=== PATIENT | female | born 1955 | race Two or more races ===

== ENCOUNTER 2020-02-24 23:41 | Inpatient (IN) | payer MEDICARE ==
[~2020-02-24] VITALS: Ht 165.1 cm; Wt 81.6 kg
--- NOTE | 2020-02-24 23:30 | NUR ---
PT IS A DIRECT ADMIT FROM [facility] IN [facility], C/O OF ABDOMINAL PAIN X4 WEEKS AND SOBX4 DAYS. DENIES N/V/ DIARRHEA. PT TESTED POSITIVE FOR COVID. PT DENIES ANY SOB/CP, BUT C/O ABDOMINAL PAIN. PT IS ON 15L NRM SATURATING AT 97%, V/S STABLE. SKIN IS INTACT. PERSONAL BELONGINGS CHECKED AND WITH THE PATIENT. SAFETY MEASURES IN PLACE. CALL LIGHT WITHIN REACH. WILL CONTINUE WITH THE PLAN OF CARE.
[2020-02-25] VITALS (9 sets, daily range): BP systolic 105–137; BP diastolic 48–81
[2020-02-25] MEDS ORDERED: CEFT2VIA13 IJ (01:38)
[2020-02-25] MEDS ORDERED: DOXY (01:42)
[2020-02-25] MEDS ORDERED: MAGNESIUM HYDROXIDE 30 ML LIQUID UDC PO PRN (02:00)
[2020-02-25] MEDS ORDERED: Z GUARD REMEDY PASTE 57 GM TUBE TOP PRN (02:00)
[2020-02-25] MEDS ORDERED: HYDROCODONE/APAP 5-325MG TABLET PO PRN (02:00)
[2020-02-25] MEDS ORDERED: ONDANSETRON 4 MG/2 ML VIAL IV PRN (02:00)
[2020-02-25] MEDS ORDERED: ENOXAPARIN SODIUM 40 MG/0.4 ML DISP.SYRIN SQ SCH (02:00)
[2020-02-25] MEDS ORDERED: DEXTROSE 50% 50 ML DISP.SYRIN IV PRN (02:00)
[2020-02-25] MEDS: ACETAMINOPHEN 325 MG TABLET PO PRN ×2 (02:47→17:03)
[2020-02-25] MEDS: BLOOD SUGAR DIAGNOSTIC 1 EACH STRIP VI SCH ×4 (07:51→21:15)
[2020-02-25] MEDS: DEXAMETHASONE SOD PHOSPHATE 4 MG INJ IV SCH (08:44)
[2020-02-25] MEDS: CEFTRIAXONE 1 G in IV DEXTROSE 5% 50 ML IV SCH (08:44)
[2020-02-25] MEDS: ENOXAPARIN SODIUM 40 MG/0.4 ML DISP.SYRIN SQ SCH (08:45)
[2020-02-25] MEDS: INSULIN REGULAR, HUMAN 300 UNIT/3 ML VIAL SQ PRN ×3 (08:55→17:47)
[2020-02-25] MEDS ORDERED: CEFTRIAXONE 1 G VIAL IM SCH (09:00)
[2020-02-25 11:05] LABS: CREATININE 0.8 mg/dL (0.6-1.3); POTASSIUM 4.4 mmol/L (3.5-5.1)
[2020-02-25 11:17] LABS: BASOPHILS % (AUTO) 0.4 % (0.0-2.0); EOSINOPHILS % (AUTO) 0.2 % (0.0-7.0); HEMATOCRIT 46.1 % (31.2-41.9); HEMOGLOBIN 15.9 g/dL (10.9-14.3); LYMPHOCYTES # (AUTO) 0.6 K/uL (20.0-40.0); LYMPHOCYTES % (AUTO) 15.6 % (20.5-51.5); MEAN CORPUSCULAR HEMOGLOBIN 31.9 uug (24.7-32.8); MEAN CORPUSCULAR HGB CONC 35 g/dL (32.3-35.6); MEAN CORPUSCULAR VOLUME 92.6 fL (75.5-95.3); MONOCYTES # (AUTO) 0.3 K/uL (2.0-10.0); MONOCYTES % (AUTO) 9.2 % (0.0-11.0); NEUTROPHILS # (AUTO) 2.7 K/uL (1.8-8.9); NEUTROPHILS % (AUTO) 74.6 % (38.5-71.5); PLATELET COUNT (AUTO) 76 K/uL (179-408); RED BLOOD CELL COUNT(AUTO) 4.98 MIL/uL (3.63-4.92); WHITE BLOOD COUNT (AUTO) 3.6 K/uL (3.8-11.8)
[2020-02-25 11:21] LABS: THYROID STIMULATING HORMONE 1.483 mIU/mL (0.358-3.740)
[2020-02-25 11:24] LABS: MAGNESIUM 1.9 mg/dL (1.8-2.4); PHOSPHOROUS 2.5 mg/dL (2.5-4.9)
[2020-02-25] MEDS ORDERED: REMDESIVIR (CHARGED) 200 MG in IV NORMAL SALINE 210 ML IV ONE ×2 (15:00→17:00)
--- NOTE | 2020-02-25 15:00 | NUR ---
Received pt in no acute distress. pt on non-rebreather mask on 15 l. Iv intact. Safety and comfort provided. Will continue to monitor.
--- NOTE | 2020-02-25 15:30 | NUR ---
PT STABLE THROUGHOUT THE SHIFT. ON 15L NRM TOLERATING WELL. SAFETY MEASURES IN PLACE. CALL LIGHT WITHIN REACH. WILL ENDORSE TO ONCOMING NURSE ACCORDINGLY.
--- NOTE | 2020-02-25 16:05 | NUR ---
CALLED DR. SWARTZ FOR UPDATE REGARDING PT OXYGEN SATURATION IS AT 88% AT 15L NONREBREATHER MASK. ORDERED TO MONITOR PT AND UPDATE HIM AFTER AN HOUR.
--- NOTE | 2020-02-25 17:05 | NUR ---
DR. SWARTZ NOTIFIED PT OXYGEN IS 90%. PT GIVEN TYLENOL PRN PER PT REQUEST. PT TOLERATING IT WELL. SAFETY PROVIDED. WILL CONTINUE TO MONITOR.
--- NOTE | 2020-02-25 19:00 | NUR ---
Hands off report given. Pt in no acute distress.iv intact and ongoing remdesivir running.Pt tolERATING IT WELL. PT ON 15L NONREBREATHER MASK. SAFETY AND COMFORT PROVIDED. ENDORSE TO INCOMING NURSE.
--- NOTE | 2020-02-25 19:20 | NUR ---
patient received lying in bed comfortably but anxious. remdesivir completed. v/s stable. on nonrebreather 15L. no s/s of acute distress noted. safety precautions provided. will continue to monitor and assess.
--- NOTE | 2020-02-25 20:30 | NUR ---
patient desat at 89%. communicated to RT for evaluation. patient placed on NC 6L and non rebreather mask 15L. sat at 90% currently. will continue to monitor and assess.
[2020-02-25] MEDS: ASCORBIC ACID 500 MG TABLET PO SCH (20:35)
[2020-02-25] MEDS: INSULIN REGULAR, HUMAN 300 UNITS/3 ML VIAL SQ PRN (22:21)
--- NOTE | 2020-02-25 23:18 | NUR ---
patient resting comfortably. saturation currently at 90%.
[2020-02-26 00:50] VITALS: BP 128/61
[2020-02-26 05:55] VITALS: BP 149/68
--- NOTE | 2020-02-26 06:45 | NUR ---
patient saturation at 88%-90%. RT called for evaluation. endorsed to me by morning nurse that dr. manzanares is aware of patients saturation.
[2020-02-26] MEDS: BLOOD SUGAR DIAGNOSTIC 1 EACH STRIP VI SCH ×5 (06:51→20:34)
--- NOTE | 2020-02-26 06:54 | NUR ---
patient resting comfortably. aaox3. able to verbalize needs. asked me to bring her table closer to her for the phone. safety precautions provided. all needs met and medications administered. will continue to monitor and assess.
[2020-02-26 07:16] LABS: BASOPHILS % (AUTO) 0.1 % (0.0-2.0); HEMATOCRIT 45.9 % (31.2-41.9); HEMOGLOBIN 15.9 g/dL (10.9-14.3); LYMPHOCYTES # (AUTO) 0.7 K/uL (20.0-40.0); LYMPHOCYTES % (AUTO) 12.7 % (20.5-51.5); MEAN CORPUSCULAR HEMOGLOBIN 32.3 uug (24.7-32.8); MEAN CORPUSCULAR HGB CONC 35 g/dL (32.3-35.6); MEAN CORPUSCULAR VOLUME 93.3 fL (75.5-95.3); MONOCYTES # (AUTO) 0.8 K/uL (2.0-10.0); MONOCYTES % (AUTO) 13.5 % (0.0-11.0); NEUTROPHILS # (AUTO) 4.1 K/uL (1.8-8.9); NEUTROPHILS % (AUTO) 73.7 % (38.5-71.5); PLATELET COUNT (AUTO) 100 K/uL (179-408); RED BLOOD CELL COUNT(AUTO) 4.92 MIL/uL (3.63-4.92); WHITE BLOOD COUNT (AUTO) 5.6 K/uL (3.8-11.8)
--- NOTE | 2020-02-26 07:30 | NUR ---
Received patient in bed alert and oriented times 4. Patient is Guamanian speaking. Patient is on 6L nasal cannula and 15L non- rebreather. Patient is having labored breathing. Repositioned patient and O2 went up slightly. Safety precautions in place with call light and belongings in reach. Will continue to monitor.
[2020-02-26 07:31] LABS: CREATININE 0.9 mg/dL (0.6-1.3); MAGNESIUM 2.2 mg/dL (1.8-2.4); PHOSPHOROUS 3.4 mg/dL (2.5-4.9); POTASSIUM 3.9 mmol/L (3.5-5.1)
[2020-02-26] MEDS ORDERED: CHOLECALCIFEROL 1,000 UNIT TABLET PO SCH (09:00)
--- NOTE | 2020-02-26 09:00 | NUR ---
Patient is still having difficulty breathing. Saturating in the 80s Made MD aware. Placed orders for ABGs. Will continue to monitor.
[2020-02-26] MEDS: ASCORBIC ACID 500 MG TABLET PO SCH (09:10)
[2020-02-26] MEDS: CEFTRIAXONE 1 G in IV DEXTROSE 5% 50 ML IV SCH (09:10)
[2020-02-26] MEDS: DEXAMETHASONE SOD PHOSPHATE 4 MG INJ IV SCH (09:11)
[2020-02-26] MEDS: ENOXAPARIN SODIUM 40 MG/0.4 ML DISP.SYRIN SQ SCH (09:12)
[2020-02-26] MEDS: INSULIN REGULAR, HUMAN 300 UNIT/3 ML VIAL SQ PRN ×4 (09:25→20:51)
--- NOTE | 2020-02-26 10:50 | NUR ---
Patient ABG results reported to MD, ordered for transfer to ICU and BIPAP placement. Will continue to monitor.
[2020-02-26 11:00] LABS: ABG BASE EXCESS 1.1 mmol/L; ABG PCO2 33.6 mmHg (35.0-45.0); ABG PH 7.471 (7.350-7.450); ABG PO2 37.8 mmHg (75.0-100.0); ABG SITE RIGHT RADIAL; ABG TOTAL HEMOGLOBIN 16.7 G/dL (12.0-16.0); COHb 1.1 % (0.5-1.5); MetHb 0.3 % (0.0-1.5); O2Hb 74.9 % (94.0-97.0)
--- NOTE | 2020-02-26 11:30 | NUR ---
Patient is not being transported to ICU, no bed available. BIPAP placed by RT Rosario. Patient reports that she does not want Intubation but wants CPR. Made MD aware. Will continue to monitor
[2020-02-26 11:56] VITALS: BP 125/79
[2020-02-26 13:09] LABS: BILIRUBIN,DIRECT 0.4 mg/dL (0.0-0.2); BILIRUBIN,TOTAL 0.9 mg/dL (0.2-1.0); TOTAL PROTEIN, SERUM 7.2 g/dL (6.4-8.2)
[2020-02-26] MEDS ORDERED: REMDESIVIR (CHARGED) 100 MG in IV NORMAL SALINE 230 ML IV SCH (15:00)
[2020-02-26 16:25] VITALS: BP 119/60
[2020-02-26] MEDS: IV D5/ 0.9% NACL 1,000 ML IV PRN (16:31)
[2020-02-26] MEDS: REMDESIVIR (CHARGED) 100 MG in IV NORMAL SALINE 230 ML IV SCH (17:54)
--- NOTE | 2020-02-26 18:00 | NUR ---
Patient IV infiltrated. Started new IV on the right hand. Will infuse Remdezivir. Will continue to monitor.
--- NOTE | 2020-02-26 19:00 | NUR ---
OBTAINED ORDER FROM AVINASH MCKEON LICENSING WORKER REGARDING CPAP ORDER, AND ITS SETTINGS. CONT TO MONITOR.
--- NOTE | 2020-02-26 19:00 | NUR ---
RECEIVED PATIENT ALERT AWAKE, SPEAK TUNISIAN BUT UNDERSTAND FRENCH. PATIENT ON CPAP DUE SOB, RESPIRATORY RATE OF 40. PATIENT V/S STABLE AT THIS TIME. OXYGEN SAT 92. PATIENT HAS SOME ANXIETY, REORIENT PATIENT AND KEPT PATIENT COMFORTABLE, CONT TO MONITOR.
--- NOTE | 2020-02-26 19:17 | NUR ---
Patient resting in bed. She is on BIPAP saturating on 94%. Patient is NPO. Gave all medications as ordered. Safety precautions in place with call light and belongings within reach. Will endorse to oncoming nurse
[2020-02-26 20:00] VITALS: BP 139/68
[2020-02-26] MEDS ORDERED: INSULIN GLARGINE,HUM 300 UNITS/3 ML CARTRIDGE SQ SCH (21:00)
[2020-02-26 23:59] VITALS: BP 123/79
[2020-02-27] VITALS (8 sets, daily range): BP systolic 113–160; BP diastolic 43–72
[2020-02-27] MEDS: BLOOD SUGAR DIAGNOSTIC 1 EACH STRIP VI SCH ×4 (05:27→21:25)
[2020-02-27] MEDS: INSULIN REGULAR, HUMAN 300 UNIT/3 ML VIAL SQ PRN ×3 (06:18→17:47)
--- NOTE | 2020-02-27 06:34 | NUR ---
PATIENT ALERT ORIENTED, TELE MONITOR SINUS RHYTHM AT THIS TIME. PATIENT ON BIPAP 94% RATE 16, SAT 92 TO 96%, BUT RESPIRATION ON BETWEEN 33 TO 45, INSTRUCTED PATIENT TO BREATH SLOWLY, CONT TO MONITOR.
[2020-02-27 07:05] LABS: HEMATOCRIT 43.5 % (31.2-41.9); HEMOGLOBIN 15.2 g/dL (10.9-14.3); LYMPHOCYTES # (AUTO) 0.7 K/uL (20.0-40.0); LYMPHOCYTES % (AUTO) 11.4 % (20.5-51.5); MEAN CORPUSCULAR HEMOGLOBIN 32.2 uug (24.7-32.8); MEAN CORPUSCULAR HGB CONC 35 g/dL (32.3-35.6); MEAN CORPUSCULAR VOLUME 92.4 fL (75.5-95.3); MONOCYTES # (AUTO) 0.9 K/uL (2.0-10.0); MONOCYTES % (AUTO) 14.3 % (0.0-11.0); NEUTROPHILS # (AUTO) 4.8 K/uL (1.8-8.9); NEUTROPHILS % (AUTO) 74.3 % (38.5-71.5); PLATELET COUNT (AUTO) 115 K/uL (179-408); RED BLOOD CELL COUNT(AUTO) 4.71 MIL/uL (3.63-4.92); WHITE BLOOD COUNT (AUTO) 6.5 K/uL (3.8-11.8)
--- NOTE | 2020-02-27 08:00 | NUR ---
Pt received to care, report recieved, Pt is awake, BiPap intact, breathing is non-labored with the mask. Pt is NPO, IV running, site is intact, Pt saturates 95-97%. Skin is intact.
[2020-02-27] MEDS: DEXAMETHASONE SOD PHOSPHATE 4 MG INJ IV SCH (09:00)
[2020-02-27] MEDS: CEFTRIAXONE 1 G in IV DEXTROSE 5% 50 ML IV SCH (09:00)
[2020-02-27] MEDS: ENOXAPARIN SODIUM 40 MG/0.4 ML DISP.SYRIN SQ SCH (09:13)
[2020-02-27 10:09] LABS: BILIRUBIN,DIRECT 0.3 mg/dL (0.0-0.2); BILIRUBIN,TOTAL 0.8 mg/dL (0.2-1.0); CREATININE 0.8 mg/dL (0.6-1.3); MAGNESIUM 2.5 mg/dL (1.8-2.4); PHOSPHOROUS 2.7 mg/dL (2.5-4.9); POTASSIUM 4.5 mmol/L (3.5-5.1); TOTAL PROTEIN, SERUM 6.9 g/dL (6.4-8.2)
[2020-02-27] MEDS ORDERED: diphenhydrAMINE 50 MG/1 ML VIAL IV ONE (14:30)
--- NOTE | 2020-02-27 14:30 | NUR ---
RT PT WAS PLACE BACK ON BIPAP DUE TO ABG RESULTS RESULTS GIVEN AND READ BACK TO MD PT PENDING CCU TRANSFER. SPO2 93% BIAPP ALARMS ON AND AUDIBLE .
[2020-02-27] MEDS: IV D5/ 0.9% NACL 1,000 ML IV PRN (14:43)
[2020-02-27] MEDS ORDERED: TOCILIZUMAB 400 MG in IV NORMAL SALINE 80 ML IV ONE ×2 (15:00→17:00)
[2020-02-27 16:57] LABS: ABG BASE EXCESS -1.5 mmol/L; ABG HCO3 20.2 mmol/L; ABG PCO2 27.3 mmHg (35.0-45.0); ABG PH 7.487 (7.350-7.450); ABG PO2 43.2 mmHg (75.0-100.0); ABG SITE LEFT RADIAL; COHb 1.6 % (0.5-1.5); MetHb 0.2 % (0.0-1.5); O2Hb 83.8 % (94.0-97.0); VENT MODE HFNC 55LPM 100% NRB 15LPM
[2020-02-27] MEDS: REMDESIVIR (CHARGED) 100 MG in IV NORMAL SALINE 230 ML IV SCH (17:55)
--- NOTE | 2020-02-27 18:45 | NUR ---
Patient transported to CCU, with BiPap mask, accompanied by RT, nurse and YOUTH CARE SPECIALIST. Report given to LUKAS Navas
--- NOTE | 2020-02-27 19:00 | NUR ---
Patient arrived on unit from 3rd floor telemetry as I was coming onto my shift. Patient is COVID + and being upgraded to ICU for worsening ABG results. Patient is currently on BiPAP 14/ rate 16 FiO2 100% current saturation 96%. Was informed she has been in controlled Afib, however she is currently in sinus rhythm on the monitor. Peripheral iv in the right AC running D5W @75ml/hr. Patient is A/O x2 anxious and Cape Verdean speaking. Patient arrived with all belongings.
[2020-02-27] MEDS: INSULIN GLARGINE,HUM 300 UNITS/3 ML CARTRIDGE SQ SCH (21:26)
[2020-02-27] MEDS: INSULIN REGULAR, HUMAN 300 UNITS/3 ML VIAL SQ PRN (21:28)
[2020-02-28] VITALS (24 sets, daily range): BP systolic 96–160; BP diastolic 22–101
[2020-02-28 05:30] LABS: BASOPHILS % (AUTO) 0.1 % (0.0-2.0); HEMATOCRIT 42.6 % (31.2-41.9); HEMOGLOBIN 14.3 g/dL (10.9-14.3); LYMPHOCYTES # (AUTO) 0.6 K/uL (20.0-40.0); LYMPHOCYTES % (AUTO) 9.3 % (20.5-51.5); MEAN CORPUSCULAR HEMOGLOBIN 31.6 uug (24.7-32.8); MEAN CORPUSCULAR HGB CONC 34 g/dL (32.3-35.6); MEAN CORPUSCULAR VOLUME 93.9 fL (75.5-95.3); MONOCYTES # (AUTO) 0.9 K/uL (2.0-10.0); MONOCYTES % (AUTO) 13.3 % (0.0-11.0); NEUTROPHILS % (AUTO) 77.3 % (38.5-71.5); PLATELET COUNT (AUTO) 117 K/uL (179-408); RED BLOOD CELL COUNT(AUTO) 4.54 MIL/uL (3.63-4.92); WHITE BLOOD COUNT (AUTO) 6.5 K/uL (3.8-11.8)
[2020-02-28 05:37] LABS: BILIRUBIN,DIRECT 0.4 mg/dL (0.0-0.2); BILIRUBIN,TOTAL 0.8 mg/dL (0.2-1.0); CREATININE 0.8 mg/dL (0.6-1.3); MAGNESIUM 2.2 mg/dL (1.8-2.4); PHOSPHOROUS 2.5 mg/dL (2.5-4.9); TOTAL PROTEIN, SERUM 6.4 g/dL (6.4-8.2)
--- NOTE | 2020-02-28 06:44 | NUR ---
Patient remains in stable condition without any episodes of desaturation during the night, maintaining a SpO2 between 93-96. Patient tolerated BiPAP well. No signs of distress, no change in level of consciousness.
[2020-02-28] MEDS: BLOOD SUGAR DIAGNOSTIC 1 EACH STRIP VI SCH ×4 (07:30→20:54)
[2020-02-28] MEDS: DEXAMETHASONE SOD PHOSPHATE 4 MG INJ IV SCH (07:51)
[2020-02-28] MEDS: ENOXAPARIN SODIUM 40 MG/0.4 ML DISP.SYRIN SQ SCH (07:52)
[2020-02-28] MEDS: INSULIN REGULAR, HUMAN 300 UNIT/3 ML VIAL SQ PRN ×2 (09:04→16:21)
--- NOTE | 2020-02-28 09:22 | NUR ---
CASSIE Canas ((Infectious) here to see pt. Full report given. New orders received.
[2020-02-28] MEDS: IV D5/ 0.9% NACL 1,000 ML IV PRN (09:24)
--- NOTE | 2020-02-28 09:26 | NUR ---
Dr. Machado here to see pt. Full report given. New orders received.
[2020-02-28 10:01] LABS: ABG BASE EXCESS -1.7 mmol/L; ABG HCO3 21.7 mmol/L; ABG PCO2 33.5 mmHg (35.0-45.0); ABG PO2 75.3 mmHg (75.0-100.0); ABG SITE LEFT RADIAL; ABG TOTAL HEMOGLOBIN 15.3 G/dL (12.0-16.0); COHb 1.4 % (0.5-1.5); MetHb 0.3 % (0.0-1.5); O2Hb 93.7 % (94.0-97.0); VENT MODE BIPAP 14/7
[2020-02-28] MEDS: CEFTRIAXONE 1 G in IV DEXTROSE 5% 50 ML IV SCH (10:37)
--- NOTE | 2020-02-28 15:25 | NUR ---
Convalescent plasma form signed by Infectious MD and faxed to CCU unit. Paper received and given to blood bank.
--- NOTE | 2020-02-28 15:55 | NUR ---
1 convalescent plasma started per protocol. Infusing at 60 ml/hr first 15 min. Will assess for any adverse transfusion reactions.
--- NOTE | 2020-02-28 16:02 | NUR ---
Unable to register blood product number on convalescent plasma. Unable to scan barcode after multiple attempts. Notified lab and okay to chart manually on paper form (see pt's chart). Witness and verified with Office Machine Installer RN.
--- NOTE | 2020-02-28 16:10 | NUR ---
Pt tolerating convalescent plasma transfusion. No adverse reactions noted or reported from the pt. VSS wnl. Will continue to monitor.
--- NOTE | 2020-02-28 17:10 | NUR ---
Convalescent plasma completed. Pt tolerated transfusion well and no adverse reactions noted or reported from the pt. VSS wnl. See Blood Transfusion Record in chart for documentation notes.
[2020-02-28] MEDS: REMDESIVIR (CHARGED) 100 MG in IV NORMAL SALINE 230 ML IV SCH (17:16)
--- NOTE | 2020-02-28 19:30 | NUR ---
Report received. Patient admitted for PNA and COVID-19. AAO, follows commands fairly well. Mildly to moderately SOB on exertion. On BIPAP, JFQ9=471%, 14/7 and rate=16. Advised and reassured appropriately. Assessment done.
[2020-02-28] MEDS: INSULIN GLARGINE,HUM 300 UNITS/3 ML CARTRIDGE SQ SCH (20:57)
[2020-02-28] MEDS: INSULIN REGULAR, HUMAN 300 UNITS/3 ML VIAL SQ PRN (20:59)
--- NOTE | 2020-02-28 21:20 | NUR ---
Spoke to patient's daughter Natasha #[phone]; updated of patient's condition.
[2020-02-29] VITALS (24 sets, daily range): BP systolic 111–143; BP diastolic 49–79
--- NOTE | 2020-02-29 | NUR ---
Uses call light. Asking for water to rinse mouth. Desaturates when off BIPAP. Monitored closely.
[2020-02-29] MEDS: IV D5/ 0.9% NACL 1,000 ML IV PRN ×2 (04:29→20:54)
[2020-02-29 05:26] LABS: BASOPHILS % (AUTO) 0.1 % (0.0-2.0); EOSINOPHILS % (AUTO) 0.2 % (0.0-7.0); HEMATOCRIT 43.8 % (31.2-41.9); HEMOGLOBIN 14.9 g/dL (10.9-14.3); LYMPHOCYTES # (AUTO) 0.5 K/uL (20.0-40.0); LYMPHOCYTES % (AUTO) 7.7 % (20.5-51.5); MEAN CORPUSCULAR HEMOGLOBIN 31.7 uug (24.7-32.8); MEAN CORPUSCULAR HGB CONC 34 g/dL (32.3-35.6); MEAN CORPUSCULAR VOLUME 93.6 fL (75.5-95.3); MONOCYTES # (AUTO) 0.5 K/uL (2.0-10.0); MONOCYTES % (AUTO) 6.9 % (0.0-11.0); NEUTROPHILS # (AUTO) 6.1 K/uL (1.8-8.9); NEUTROPHILS % (AUTO) 85.1 % (38.5-71.5); PLATELET COUNT (AUTO) 105 K/uL (179-408); RED BLOOD CELL COUNT(AUTO) 4.68 MIL/uL (3.63-4.92); WHITE BLOOD COUNT (AUTO) 7.1 K/uL (3.8-11.8)
[2020-02-29 05:46] LABS: BILIRUBIN,DIRECT 0.3 mg/dL (0.0-0.2); BILIRUBIN,TOTAL 0.8 mg/dL (0.2-1.0); CREATININE 0.7 mg/dL (0.6-1.3); MAGNESIUM 2.1 mg/dL (1.8-2.4); PHOSPHOROUS 2.5 mg/dL (2.5-4.9); POTASSIUM 3.6 mmol/L (3.5-5.1); TOTAL PROTEIN, SERUM 6.2 g/dL (6.4-8.2)
--- NOTE | 2020-02-29 06:24 | NUR ---
Condition unchanged; still mildly to moderately SOB with activity or exertion. BP stable.
[2020-02-29] MEDS: BLOOD SUGAR DIAGNOSTIC 1 EACH STRIP VI SCH ×4 (06:55→20:27)
--- NOTE | 2020-02-29 08:00 | NUR ---
PT RECEIVED ON CONTINUOUS BIPAP ON S/T SETTINGS OF IPAP 14, EPAP 7, RATE 16, 100% FIO2. PT IS TACHYPNEIC, APPEARS TO HAVE SOME MODERATE DISTRESS. RN IS AWARE. BIPAP PLUGGED INTO RED OUTLET. WILL CONTINUE TO MONITOR.
[2020-02-29] MEDS: DEXAMETHASONE SOD PHOSPHATE 4 MG INJ IV SCH (08:06)
[2020-02-29] MEDS: ENOXAPARIN SODIUM 40 MG/0.4 ML DISP.SYRIN SQ SCH (08:06)
[2020-02-29] MEDS: CEFTRIAXONE 1 G in IV DEXTROSE 5% 50 ML IV SCH (08:09)
--- NOTE | 2020-02-29 08:34 | NUR ---
Patient tachypneic with breathing in the mid-30 to mid 40's with c/of feeling short of breath. Saturation on 95-98 on bipap 100%.
--- NOTE | 2020-02-29 08:35 | NUR ---
Pulmonary services, Dr. Machado called to be notified orders to intubate pt. received. ER. physician notified.
[2020-02-29] MEDS ORDERED: PROPOFOL 100 ML IV PRN (08:45)
--- NOTE | 2020-02-29 10:30 | NUR ---
Pulmonary services, Dr. Machado in the unit to see and examine pt. report given. After assessing pt. as stated by Md. Patient should be intubated at any time when needed bipap changes ordered at this time.
--- NOTE | 2020-02-29 11:11 | NUR ---
RT Devendra in the unit and BIPAP changed to Rate 20 / and 100%.
[2020-02-29] MEDS: INSULIN REGULAR, HUMAN 300 UNIT/3 ML VIAL SQ PRN ×2 (12:21→17:16)
[2020-02-29] MEDS ORDERED: LORAZEPAM 2 MG/1 ML VIAL IV ONE (14:30)
[2020-02-29] MEDS: REMDESIVIR (CHARGED) 100 MG in IV NORMAL SALINE 230 ML IV SCH (17:05)
--- NOTE | 2020-02-29 19:30 | NUR ---
Report received. Patient admitted for PNA and COVID-19, on isolation. Sleeping, easily arouses to name. On continuous BIPAP settings as follows: rate=20, 18/7 and IJN7=770%. Tachypneic RR in the 30's. Saturation above 90%. Will monitor closely. Assessment completed. Addendum: 03/01/20 at 0325 by MANUELA IRENE RN Amended: Links added. Addendum: 03/01/20 at 0327 by MANUELA IRENE RN Amended: Links added.
--- NOTE | 2020-02-29 20:00 | NUR ---
RT at bedside. Bath given; skin care provided with RT's help. Mildly SOB during care. On high goodwin's position at all times. Addendum: 03/01/20 at 0327 by MANUELA IRENE RN Amended: Links added.
[2020-02-29] MEDS: INSULIN GLARGINE,HUM 300 UNITS/3 ML CARTRIDGE SQ SCH (20:29)
[2020-02-29] MEDS: INSULIN REGULAR, HUMAN 300 UNITS/3 ML VIAL SQ PRN (20:30)
[2020-03-01] VITALS (24 sets, daily range): BP systolic 94–137; BP diastolic 20–79
--- NOTE | 2020-03-01 | NUR ---
Sleeping, O2 saturation 94-96%.
[2020-03-01 05:22] LABS: BASOPHILS % (AUTO) 0.1 % (0.0-2.0); EOSINOPHILS # (AUTO) 0.2 K/uL (0.0-0.7); EOSINOPHILS % (AUTO) 2.2 % (0.0-7.0); HEMATOCRIT 44.4 % (31.2-41.9); HEMOGLOBIN 15.2 g/dL (10.9-14.3); LYMPHOCYTES # (AUTO) 0.5 K/uL (20.0-40.0); LYMPHOCYTES % (AUTO) 6.9 % (20.5-51.5); MEAN CORPUSCULAR HEMOGLOBIN 31.9 uug (24.7-32.8); MEAN CORPUSCULAR HGB CONC 34 g/dL (32.3-35.6); MEAN CORPUSCULAR VOLUME 93.3 fL (75.5-95.3); MONOCYTES # (AUTO) 0.4 K/uL (2.0-10.0); MONOCYTES % (AUTO) 5.1 % (0.0-11.0); NEUTROPHILS % (AUTO) 85.7 % (38.5-71.5); PLATELET COUNT (AUTO) 100 K/uL (179-408); RED BLOOD CELL COUNT(AUTO) 4.76 MIL/uL (3.63-4.92)
[2020-03-01 05:40] LABS: CREATININE 0.8 mg/dL (0.6-1.3); MAGNESIUM 2.1 mg/dL (1.8-2.4); PHOSPHOROUS 2.6 mg/dL (2.5-4.9); POTASSIUM 3.6 mmol/L (3.5-5.1)
--- NOTE | 2020-03-01 06:00 | NUR ---
PT ON CONT BI/PAP MACHINE WITH MED. MASK, REPOSITION MASK AT TIMES, WITH FOAM PROTECTIVE BACKING BEHIND MASK, PT SEMI AWAKE, BREATHS RAPID AT TIMES, NO VENT CHANGES MADE, WITH ADEQUATE VENTILATION, ABG DONE APPROX 05:15 ORDERED, S/B HIGH FLOW .Keya MOHR HOTEL ADMINISTRATIVE ASSISTANT Addendum: 03/01/20 at 0602 by KATE MOHR RT Amended: Links added.
[2020-03-01] MEDS: BLOOD SUGAR DIAGNOSTIC 1 EACH STRIP VI SCH ×3 (06:41→17:38)
--- NOTE | 2020-03-01 06:55 | NUR ---
Remains on BIPAP with 100% FIO2. Saturations above 90%; still tachypneic and mildly to moderately SOB during care. Isolation maintained.
[2020-03-01] MEDS: ENOXAPARIN SODIUM 40 MG/0.4 ML DISP.SYRIN SQ SCH (08:12)
[2020-03-01] MEDS: DEXAMETHASONE SOD PHOSPHATE 4 MG INJ IV SCH (08:13)
[2020-03-01] MEDS: INSULIN REGULAR, HUMAN 300 UNIT/3 ML VIAL SQ PRN ×2 (08:15→12:52)
[2020-03-01 08:21] LABS: ABG BASE EXCESS -0.5 mmol/L; ABG HCO3 23.3 mmol/L; ABG PH 7.428 (7.350-7.450); ABG PO2 91.6 mmHg (75.0-100.0); ABG SITE LEFT RADIAL; ABG TOTAL HEMOGLOBIN 15.8 G/dL (12.0-16.0); COHb 1.1 % (0.5-1.5); MetHb 0.3 % (0.0-1.5); VENT MODE BIPAP
[2020-03-01 08:37] LABS: ABG BASE EXCESS -1.1 mmol/L; ABG HCO3 22.5 mmol/L; ABG PCO2 34.8 mmHg (35.0-45.0); ABG PH 7.428 (7.350-7.450); ABG SITE LEFT RADIAL; COHb 1.4 % (0.5-1.5); MetHb 0.3 % (0.0-1.5); O2Hb 95.6 % (94.0-97.0); VENT MODE BIPAP
--- NOTE | 2020-03-01 08:45 | NUR ---
Pt. was placed in prone position,tolerated well.
--- NOTE | 2020-03-01 09:45 | NUR ---
Pt.was seen by with new orders.
[2020-03-01] MEDS ORDERED: DEXAMETHASONE SOD PHOSPHATE 10 MG INJ IV ONE (10:00)
[2020-03-01] MEDS ORDERED: FUROSEMIDE 40 MG/4 ML VIAL IV ONE (10:00)
[2020-03-01] MEDS ORDERED: INSULIN REGULAR, HUMAN 300 UNIT/3 ML VIAL SQ PRN (10:45)
[2020-03-01] MEDS ORDERED: DEXTROSE 50% 50 ML DISP.SYRIN IV PRN ×2 (10:45→12:00)
[2020-03-01] MEDS: IV DEXTROSE 5W-0.45% NS + KCL 1,000 ML IV SCH (11:16)
--- NOTE | 2020-03-01 11:55 | NUR ---
Pt.was seen by XOCHITL LIZ DNP
[2020-03-01] MEDS ORDERED: BLOOD SUGAR DIAGNOSTIC 1 EACH STRIP VI SCH ×2 (12:00)
[2020-03-01] MEDS: IPRATROPIUM BROMIDE 0.5 MG/2.5 ML NEBU NEB SCH ×2 (13:18→20:45)
[2020-03-01] MEDS: ALBUTEROL SULFATE 2.5 MG/3 ML NEBU NEB SCH ×2 (13:18→20:45)
--- NOTE | 2020-03-01 16:45 | NUR ---
Pt.was seen by ARMANDO BUSTAMANTE MD.
[2020-03-01] MEDS ORDERED: DEXAMETHASONE SOD PHOSPHATE 4 MG INJ IV ONE (17:00)
--- NOTE | 2020-03-01 18:52 | NUR ---
Family on the phone,updated with pt. status and plan of care.no Changes in pt.condition, cont.to prone pt.
--- NOTE | 2020-03-01 19:10 | NUR ---
Received patient prone in bed on BiPAP, settings 18/7 rate of 20, FiO2 100%. Patient has been tolerating proning well with good oxygen saturations in the mid to upper 90s. ABGs have improved the past couple days since arriving in the unit. Patient remains with labored breathing and tachypneic in the 30s. Patient is alert and oriented, and able to make needs known. Guerra catheter in place and draining well clear yellow urine. Plan of care is to encourage proning as much as tolerated. Patient is able to move independently in bed and adjust her position accordingly.
[2020-03-01] MEDS: INSULIN GLARGINE,HUM 300 UNITS/3 ML CARTRIDGE SQ SCH (21:29)
[2020-03-02] VITALS (25 sets, daily range): BP systolic 98–157; BP diastolic 33–72
[2020-03-02] MEDS: BLOOD SUGAR DIAGNOSTIC 1 EACH STRIP VI SCH ×5 (00:22→23:24)
[2020-03-02] MEDS: INSULIN REGULAR, HUMAN 300 UNIT/3 ML VIAL SQ PRN ×5 (00:23→23:26)
[2020-03-02] MEDS: IV DEXTROSE 5W-0.45% NS + KCL 1,000 ML IV SCH ×2 (02:13→15:10)
[2020-03-02] MEDS: IPRATROPIUM BROMIDE 0.5 MG/2.5 ML NEBU NEB SCH ×3 (02:30→13:13)
[2020-03-02] MEDS: ALBUTEROL SULFATE 2.5 MG/3 ML NEBU NEB SCH ×3 (02:30→13:13)
[2020-03-02 05:13] LABS: EOSINOPHILS % (AUTO) 0.1 % (0.0-7.0); HEMATOCRIT 48.1 % (31.2-41.9); HEMOGLOBIN 16.5 g/dL (10.9-14.3); LYMPHOCYTES # (AUTO) 0.4 K/uL (20.0-40.0); LYMPHOCYTES % (AUTO) 3.5 % (20.5-51.5); MEAN CORPUSCULAR HEMOGLOBIN 31.9 uug (24.7-32.8); MEAN CORPUSCULAR HGB CONC 34 g/dL (32.3-35.6); MEAN CORPUSCULAR VOLUME 92.6 fL (75.5-95.3); MONOCYTES # (AUTO) 0.5 K/uL (2.0-10.0); MONOCYTES % (AUTO) 4.6 % (0.0-11.0); NEUTROPHILS # (AUTO) 9.3 K/uL (1.8-8.9); NEUTROPHILS % (AUTO) 91.8 % (38.5-71.5); PLATELET COUNT (AUTO) 92 K/uL (179-408); RED BLOOD CELL COUNT(AUTO) 5.19 MIL/uL (3.63-4.92); WHITE BLOOD COUNT (AUTO) 10.2 K/uL (3.8-11.8)
[2020-03-02 05:40] LABS: LYMPHOCYTES % (MANUAL) 4 % (20-40); MONOCYTES % (MANUAL) 7 % (2-10); NEUTROPHILS % (MANUAL) 89 % (42-75)
[2020-03-02 05:49] LABS: BILIRUBIN,DIRECT 0.5 mg/dL (0.0-0.2); BILIRUBIN,TOTAL 1.3 mg/dL (0.2-1.0); CREATININE 0.7 mg/dL (0.6-1.3); MAGNESIUM 2.2 mg/dL (1.8-2.4); PHOSPHOROUS 2.7 mg/dL (2.5-4.9); POTASSIUM 3.9 mmol/L (3.5-5.1); TOTAL PROTEIN, SERUM 6.1 g/dL (6.4-8.2)
[2020-03-02 07:48] LABS: ABG BASE EXCESS 0.5 mmol/L; ABG HCO3 23.8 mmol/L; ABG PCO2 34.6 mmHg (35.0-45.0); ABG PH 7.455 (7.350-7.450); ABG PO2 77.7 mmHg (75.0-100.0); ABG SITE LEFT RADIAL; ABG TOTAL HEMOGLOBIN 16.6 G/dL (12.0-16.0); COHb 1.5 % (0.5-1.5); MetHb 0.3 % (0.0-1.5); O2Hb 94.3 % (94.0-97.0); VENT MODE BIPAP
[2020-03-02] MEDS: DEXAMETHASONE SOD PHOSPHATE 4 MG INJ IV SCH (08:42)
[2020-03-02] MEDS: ENOXAPARIN SODIUM 40 MG/0.4 ML DISP.SYRIN SQ SCH (08:47)
--- NOTE | 2020-03-02 09:45 | NUR ---
PT.WAS SEEN BY LISA ADAMES MD
--- NOTE | 2020-03-02 11:33 | NUR ---
WOUND CARE CONSULT: REVIEWED CHART, NURSING DOCUMENTATION AND PHOTOS WHICH INDICATE NASAL BRIDGE ABRASION AND SACRAL INTACT DEEP TISSUE INJURY. PT HAS MULTIPLE CO-MORBIDITIES INCLUDING SEVERE COVID 19 PNEUMONIA. RECOMMENDATIONS MADE FOR SKIN PROTECTION AND WOUND CARE. DISCUSSED WITH NURSING STAFF. FIRST STEP LOW AIRLOSS MATTRESS IS ON ORDER. MD IN AGREEMENT WITH PLAN OF CARE.
[2020-03-02] MEDS: NEOMY/BACITRAC/POLYMI OINT 28.35 GM TUBE TOP SCH (12:54)
--- NOTE | 2020-03-02 14:55 | NUR ---
Pt.was seen by XOCHITL LIZ DNP
--- NOTE | 2020-03-02 16:30 | NUR ---
Family on the phone,updated with pt. status and plan of care,was able to due face time with pt.
--- NOTE | 2020-03-02 17:40 | NUR ---
No changes in pt.condition, cont.to prone pt.
[2020-03-02] MEDS: ALBUTEROL SULFATE 8 GM HFA.AER.AD IH SCH (19:30)
[2020-03-02] MEDS: IPRATROPIUM BROMIDE 12.9 GM INHALER INH SCH (19:30)
--- NOTE | 2020-03-02 19:30 | NUR ---
Report received. Patient on COVID-19 isolation. AA, follows commands fairly well. On continuous BIPAP with 100% FIO2. Plan of care discussed. Placed on prone position. Monitored closely. Call light within reach. Assessment done.
[2020-03-02] MEDS: INSULIN GLARGINE,HUM 300 UNITS/3 ML CARTRIDGE SQ SCH (20:15)
--- NOTE | 2020-03-02 21:48 | NUR ---
Patient's daughter Mone called; updated of patient's condition. Patient tolerating prone position. Saturation 95%.
--- NOTE | 2020-03-02 22:30 | NUR ---
Bath given skin care provided. Still mildly SOB during care. Placed on high goodwin's position.
[2020-03-03] VITALS (23 sets, daily range): BP systolic 96–132; BP diastolic 44–88
[2020-03-03] MEDS: IPRATROPIUM BROMIDE 12.9 GM INHALER INH SCH ×4 (00:30→19:55)
[2020-03-03] MEDS: ALBUTEROL SULFATE 8 GM HFA.AER.AD IH SCH ×4 (00:30→19:55)
--- NOTE | 2020-03-03 03:00 | NUR ---
Placed on prone position again but only lasted for 30 minutes. Turned to L lateral side.
--- NOTE | 2020-03-03 05:26 | NUR ---
PATIENT IS ON BIPAP WITH ORDERED SETTINGS ON 100% O2. SKIN ABRASION NOTED ON BRIDGE OF NOSE. RN IS AWARE. MEPIPLEX CHANGED, MASK READJUSTED NEEDED. PATIENT PRONED THROUGHOUT SHIFT WITHOUT COMPLICATIONS. PATIENT IS ALERT AND ORIENTED. ALARMS ON/AUDIBLE. WILL CONTINUE TO MONITOR.
[2020-03-03] MEDS: IV DEXTROSE 5W-0.45% NS + KCL 1,000 ML IV SCH ×2 (05:33→20:01)
[2020-03-03] MEDS: BLOOD SUGAR DIAGNOSTIC 1 EACH STRIP VI SCH ×3 (05:36→17:35)
[2020-03-03] MEDS: INSULIN REGULAR, HUMAN 300 UNIT/3 ML VIAL SQ PRN ×3 (05:37→17:37)
[2020-03-03 05:51] LABS: BASOPHILS % (AUTO) 0.1 % (0.0-2.0); EOSINOPHILS # (AUTO) 0.2 K/uL (0.0-0.7); EOSINOPHILS % (AUTO) 2.4 % (0.0-7.0); HEMATOCRIT 46.7 % (31.2-41.9); HEMOGLOBIN 16.1 g/dL (10.9-14.3); LYMPHOCYTES # (AUTO) 0.5 K/uL (20.0-40.0); LYMPHOCYTES % (AUTO) 4.7 % (20.5-51.5); MEAN CORPUSCULAR HEMOGLOBIN 32.3 uug (24.7-32.8); MEAN CORPUSCULAR HGB CONC 35 g/dL (32.3-35.6); MEAN CORPUSCULAR VOLUME 93.3 fL (75.5-95.3); MONOCYTES # (AUTO) 0.4 K/uL (2.0-10.0); MONOCYTES % (AUTO) 3.7 % (0.0-11.0); NEUTROPHILS # (AUTO) 8.8 K/uL (1.8-8.9); NEUTROPHILS % (AUTO) 89.1 % (38.5-71.5); PLATELET COUNT (AUTO) 87 K/uL (179-408); RED BLOOD CELL COUNT(AUTO) 5.01 MIL/uL (3.63-4.92); WHITE BLOOD COUNT (AUTO) 9.8 K/uL (3.8-11.8)
[2020-03-03 06:04] LABS: CREATININE 0.7 mg/dL (0.6-1.3); MAGNESIUM 2.2 mg/dL (1.8-2.4); PHOSPHOROUS 2.9 mg/dL (2.5-4.9); POTASSIUM 4.3 mmol/L (3.5-5.1)
[2020-03-03 06:43] LABS: ABG BASE EXCESS -0.2 mmol/L; ABG HCO3 21.9 mmol/L; ABG PCO2 29.9 mmHg (35.0-45.0); ABG PH 7.483 (7.350-7.450); ABG PO2 154.5 mmHg (75.0-100.0); ABG SITE LEFT RADIAL; ABG TOTAL HEMOGLOBIN 16.4 G/dL (12.0-16.0); COHb 1.8 % (0.5-1.5); MetHb 0.3 % (0.0-1.5); O2Hb 97.6 % (94.0-97.0); VENT MODE BIPAP
[2020-03-03] MEDS: NEOMY/BACITRAC/POLYMI OINT 28.35 GM TUBE TOP SCH (08:18)
[2020-03-03] MEDS: DEXAMETHASONE SOD PHOSPHATE 4 MG INJ IV SCH (08:18)
[2020-03-03] MEDS: ENOXAPARIN SODIUM 40 MG/0.4 ML DISP.SYRIN SQ SCH (08:28)
--- NOTE | 2020-03-03 09:10 | NUR ---
Dr. Machado here to see pt. Full report given. New orders received.
[2020-03-03] MEDS ORDERED: DEXAMETHASONE SOD PHOSPHATE 10 MG INJ IV ONE (17:00)
[2020-03-03 17:37] LABS: BAND % (MANUAL) 2 % (0-10); EOSINOPHILS % (MANUAL) 1 % (0-8); LYMPHOCYTES % (MANUAL) 6 % (20-40); MONOCYTES % (MANUAL) 4 % (2-10); NEUTROPHILS % (MANUAL) 87 % (42-75)
--- NOTE | 2020-03-03 20:00 | NUR ---
RECEIVED PT ALERT & FOLLOWS TO COMMAND. ON BIPAP I-18/E-7, RATE-20,FIO2-100% W/ O2 SAT OF 94%. PT IS TACHYPNIC RESP-28-34/MIN. IV ON R HAND IS PULLED OUT. IVF D51/2NS W/ 30MEQ KCL @ 70CC/HR. ON FREDO MIDLINE. REPOSITIONED W/ HOB ELEVATED.
--- NOTE | 2020-03-03 20:30 | NUR ---
PT. PLACED ON PRONING, PT TOLERATED ONLY FOR FEW MINS. REPOSITIONED IN BED W/ HOB ELEVATED.
--- NOTE | 2020-03-03 21:00 | NUR ---
TRIED PRONING AGAIN STILL NOT TOLERATING. PT STARTED IN RESP DISTRESS, REPOSITIONED HOB HIGHLY ELEVATED.
[2020-03-03] MEDS: INSULIN GLARGINE,HUM 300 UNITS/3 ML CARTRIDGE SQ SCH (21:23)
--- NOTE | 2020-03-03 21:38 | NUR ---
CALLED ER TO EVALUATE PT.
--- NOTE | 2020-03-03 21:50 | NUR ---
PT WAS INTUBATED DUE TO RESP DISTRESS AND NO LONGER DEDRICK BIPAP. INTUBATED PT WITH 7.0 ET TUBE @ APPROX 23CM AT LIP WITH ER DR. HALLMAN. PT PLACED ON GIVEN SETTINGS FROM ER DR. CLARKE VT500 PEEP +8 100%. SECURED BY ANCHOR FAST. ALARMS ON AND AUDIBLE. MINIMAL BLEED NOTED DURING SXN. AMBUBAG @ BEDSIDE. WILL CONT TO MONITOR T/O SHIFT.
--- NOTE | 2020-03-03 21:50 | NUR ---
INTUBATED PT W/ # 7.0 ETT, 23CM ON THE LIP. PLACED ON VENT SETTINGS OF AC-16, TV-500, FIO2-100%, PEEP-+5 W/ O2 SAT OF 98%.
[2020-03-03] MEDS ORDERED: PROPOFOL 100 ML IV PRN (22:00)
--- NOTE | 2020-03-03 23:00 | NUR ---
UNABLE TO MAINTAIN SP02 >88%. SPOKE & RECEIVED TO DR. PADILLA FOR PCV ORDERS TO ACHIEVE >88% AND MAINTAIN TIDAL VOLUMES ABOVE 500. SP02 IS NOW BETWEEN 88-92%. WILL CONTINUE TO MONITOR PATIENT THROUGHOUT SHIFT. NO SOB NOTED.
[2020-03-03] MEDS: PROPOFOL 100 ML IV PRN (23:04)
--- NOTE | 2020-03-03 23:04 | NUR ---
STARTED ON DIPRIVAN DRIP TITRATED FOR SEDATION.
--- NOTE | 2020-03-03 23:21 | NUR ---
DR PADILLA CALLED RE:UNABLE TO GET THE VOLUME ON VENT WITH ORDER TO ADD PCV TITRATED.
[2020-03-04] VITALS (12 sets, daily range): BP systolic 91–114; BP diastolic 46–65
[2020-03-04 00:27] LABS: ABG BASE EXCESS -8.2 mmol/L; ABG HCO3 15.3 mmol/L; ABG PH 7.355 (7.350-7.450); ABG SITE LEFT RADIAL; ABG TOTAL HEMOGLOBIN 18.2 G/dL (12.0-16.0); COHb 1.6 % (0.5-1.5); MetHb 0.3 % (0.0-1.5); VENT MODE VENT - PCONTROL
[2020-03-04] MEDS: BLOOD SUGAR DIAGNOSTIC 1 EACH STRIP VI SCH ×4 (00:43→17:12)
[2020-03-04] MEDS: INSULIN REGULAR, HUMAN 300 UNIT/3 ML VIAL SQ PRN ×4 (00:45→17:21)
[2020-03-04] MEDS: ALBUTEROL SULFATE 8 GM HFA.AER.AD IH SCH ×4 (01:52→19:33)
[2020-03-04] MEDS: IPRATROPIUM BROMIDE 12.9 GM INHALER INH SCH ×4 (01:52→19:33)
[2020-03-04] MEDS: PROPOFOL 100 ML IV PRN ×6 (03:27→21:36)
--- NOTE | 2020-03-04 04:00 | NUR ---
AM CARE DONE. ORAL CARE DONE. REPOSITIONED W/ HOB ELEVATED.
[2020-03-04] MEDS ORDERED: SUCCINYLCHOLINE CHLORIDE 200 MG/10 ML VIAL IV ONE (05:00)
[2020-03-04] MEDS ORDERED: ETOMIDATE 20 MG/10 ML VIAL IV ONE (05:00)
[2020-03-04 06:02] LABS: EOSINOPHILS % (AUTO) 0.1 % (0.0-7.0); HEMATOCRIT 47.8 % (31.2-41.9); HEMOGLOBIN 16.4 g/dL (10.9-14.3); LYMPHOCYTES # (AUTO) 0.5 K/uL (20.0-40.0); LYMPHOCYTES % (AUTO) 2.9 % (20.5-51.5); MEAN CORPUSCULAR HEMOGLOBIN 32.3 uug (24.7-32.8); MEAN CORPUSCULAR HGB CONC 34 g/dL (32.3-35.6); MEAN CORPUSCULAR VOLUME 94.2 fL (75.5-95.3); MONOCYTES # (AUTO) 0.7 K/uL (2.0-10.0); MONOCYTES % (AUTO) 4.1 % (0.0-11.0); NEUTROPHILS # (AUTO) 15.1 K/uL (1.8-8.9); NEUTROPHILS % (AUTO) 92.9 % (38.5-71.5); PLATELET COUNT (AUTO) 85 K/uL (179-408); RED BLOOD CELL COUNT(AUTO) 5.07 MIL/uL (3.63-4.92); WHITE BLOOD COUNT (AUTO) 16.3 K/uL (3.8-11.8)
[2020-03-04 06:06] LABS: CREATININE 0.9 mg/dL (0.6-1.3); MAGNESIUM 2.4 mg/dL (1.8-2.4); PHOSPHOROUS 2.4 mg/dL (2.5-4.9); POTASSIUM 4.7 mmol/L (3.5-5.1)
[2020-03-04] MEDS ORDERED: MIDAZOLAM HCL 50 MG in IV NORMAL SALINE 40 ML IV PRN (06:30)
[2020-03-04 08:02] LABS: ABG BASE EXCESS -1.7 mmol/L; ABG HCO3 21.3 mmol/L; ABG PCO2 31.8 mmHg (35.0-45.0); ABG PH 7.443 (7.350-7.450); ABG SITE LEFT RADIAL; ABG TOTAL HEMOGLOBIN 16.1 G/dL (12.0-16.0); COHb 1.8 % (0.5-1.5); MetHb 0.2 % (0.0-1.5); O2Hb 89.8 % (94.0-97.0); VENT MODE VENT - PCONTROL 25
[2020-03-04] MEDS: ENOXAPARIN SODIUM 40 MG/0.4 ML DISP.SYRIN SQ SCH (08:40)
[2020-03-04] MEDS: NEOMY/BACITRAC/POLYMI OINT 28.35 GM TUBE TOP SCH (08:40)
[2020-03-04] MEDS: DEXAMETHASONE SOD PHOSPHATE 4 MG INJ IV SCH (08:40)
[2020-03-04] MEDS: IV DEXTROSE 5W-0.45% NS + KCL 1,000 ML IV SCH (10:34)
--- NOTE | 2020-03-04 11:01 | NUR ---
Dr. Machado here to see pt. Full report given. New orders received.
[2020-03-04] MEDS ORDERED: SODIUM PHOSPHATE MM 15 MMOL in IV NORMAL SALINE 250 ML IV ONE (16:00)
[2020-03-04 17:34] LABS: BAND % (MANUAL) 2 % (0-10); LYMPHOCYTES % (MANUAL) 3 % (20-40); MONOCYTES % (MANUAL) 6 % (2-10); NEUTROPHILS % (MANUAL) 89 % (42-75)
[2020-03-04] MEDS: INSULIN GLARGINE,HUM 300 UNITS/3 ML CARTRIDGE SQ SCH (21:28)
[2020-03-05] VITALS (24 sets, daily range): BP systolic 97–128; BP diastolic 56–87
[2020-03-05] MEDS: BLOOD SUGAR DIAGNOSTIC 1 EACH STRIP VI SCH ×4 (00:06→17:31)
[2020-03-05] MEDS: INSULIN REGULAR, HUMAN 300 UNIT/3 ML VIAL SQ PRN ×4 (00:06→17:43)
[2020-03-05] MEDS: PROPOFOL 100 ML IV PRN ×6 (01:43→21:38)
[2020-03-05] MEDS: IPRATROPIUM BROMIDE 12.9 GM INHALER INH SCH ×4 (02:01→19:52)
[2020-03-05] MEDS: ALBUTEROL SULFATE 8 GM HFA.AER.AD IH SCH ×4 (02:01→19:52)
[2020-03-05] MEDS: IV DEXTROSE 5W-0.45% NS + KCL 1,000 ML IV SCH (03:30)
[2020-03-05 05:21] LABS: EOSINOPHILS # (AUTO) 0.1 K/uL (0.0-0.7); EOSINOPHILS % (AUTO) 0.7 % (0.0-7.0); HEMATOCRIT 44.7 % (31.2-41.9); HEMOGLOBIN 15.1 g/dL (10.9-14.3); LYMPHOCYTES # (AUTO) 0.5 K/uL (20.0-40.0); LYMPHOCYTES % (AUTO) 3.2 % (20.5-51.5); MEAN CORPUSCULAR HEMOGLOBIN 31.7 uug (24.7-32.8); MEAN CORPUSCULAR HGB CONC 34 g/dL (32.3-35.6); MEAN CORPUSCULAR VOLUME 93.8 fL (75.5-95.3); MONOCYTES # (AUTO) 0.6 K/uL (2.0-10.0); MONOCYTES % (AUTO) 3.8 % (0.0-11.0); NEUTROPHILS # (AUTO) 15.2 K/uL (1.8-8.9); NEUTROPHILS % (AUTO) 92.3 % (38.5-71.5); PLATELET COUNT (AUTO) 73 K/uL (179-408); RED BLOOD CELL COUNT(AUTO) 4.77 MIL/uL (3.63-4.92); WHITE BLOOD COUNT (AUTO) 16.5 K/uL (3.8-11.8)
[2020-03-05 05:38] LABS: CREATININE 0.8 mg/dL (0.6-1.3); MAGNESIUM 2.2 mg/dL (1.8-2.4); PHOSPHOROUS 3.1 mg/dL (2.5-4.9); POTASSIUM 5.4 mmol/L (3.5-5.1)
[2020-03-05 08:27] LABS: ABG BASE EXCESS -3.6 mmol/L; ABG PCO2 32.8 mmHg (35.0-45.0); ABG PH 7.404 (7.350-7.450); ABG PO2 135.6 mmHg (75.0-100.0); ABG SITE LEFT RADIAL; ABG TOTAL HEMOGLOBIN 15.9 G/dL (12.0-16.0); COHb 1.5 % (0.5-1.5); MetHb 0.4 % (0.0-1.5); O2Hb 97.1 % (94.0-97.0); VENT MODE VENT - PCONTROL 25IP
[2020-03-05] MEDS: DEXAMETHASONE SOD PHOSPHATE 4 MG INJ IV SCH (08:53)
[2020-03-05] MEDS: ENOXAPARIN SODIUM 40 MG/0.4 ML DISP.SYRIN SQ SCH (09:00)
[2020-03-05] MEDS: NEOMY/BACITRAC/POLYMI OINT 28.35 GM TUBE TOP SCH (09:00)
--- NOTE | 2020-03-05 12:00 | NUR ---
Attending Israel Farrell in the unit to see and examine pt.
--- NOTE | 2020-03-05 15:20 | NUR ---
FIO2 drop to 60% at this time by Ye Juarez
[2020-03-05] MEDS ORDERED: IV DEXTROSE 5W-0.45% NS + KCL 1,000 ML IV PRN (16:27)
[2020-03-05 16:47] LABS: *BILIRUBIN,URIN 1+ (NEGATIVE); *BLOOD, URINE 2+ (NEGATIVE); *CLARITY,URINE CLOUDY (CLEAR); *COLOR,URINE DARK YELLOW (YELLOW); *KETONES,URINE NEGATIVE (NEGATIVE); LEUKOCYTE ESTERASE ,URINE TRACE (NEGATIVE); NITRITE, URINE POSITIVE (NEGATIVE); UGLUCOSE 1+ (NEGATIVE)
[2020-03-05 19:36] LABS: BACTERIA,URINE MODERATE /HPF (NONE SEEN); RBC,URINE 20-50 /HPF (0-3); SQUAMOUS EPITHELIAL CELL,UR FEW /HPF (NONE SEEN)
[2020-03-05 19:37] LABS: YEAST,URINE MANY /HPF (NONE SEEN)
[2020-03-05] MEDS: INSULIN GLARGINE,HUM 300 UNITS/3 ML CARTRIDGE SQ SCH (21:15)
[2020-03-05] MEDS: ACETAMINOPHEN 325 MG TABLET PO PRN (22:50)
[2020-03-06] VITALS (23 sets, daily range): BP systolic 90–136; BP diastolic 46–69
[2020-03-06] MEDS: ALBUTEROL SULFATE 8 GM HFA.AER.AD IH SCH ×4 (00:31→19:43)
[2020-03-06] MEDS: IPRATROPIUM BROMIDE 12.9 GM INHALER INH SCH ×4 (00:31→19:43)
[2020-03-06] MEDS: BLOOD SUGAR DIAGNOSTIC 1 EACH STRIP VI SCH ×4 (00:45→17:51)
[2020-03-06] MEDS: INSULIN REGULAR, HUMAN 300 UNIT/3 ML VIAL SQ PRN ×3 (00:47→17:56)
[2020-03-06] MEDS: PROPOFOL 100 ML IV PRN ×2 (01:50→06:10)
[2020-03-06 06:03] LABS: BASOPHILS # (AUTO) 0.1 K/uL (0.0-8.0); BASOPHILS % (AUTO) 0.3 % (0.0-2.0); EOSINOPHILS # (AUTO) 0.1 K/uL (0.0-0.7); EOSINOPHILS % (AUTO) 0.6 % (0.0-7.0); HEMATOCRIT 45.7 % (31.2-41.9); HEMOGLOBIN 15.2 g/dL (10.9-14.3); LYMPHOCYTES # (AUTO) 0.9 K/uL (20.0-40.0); LYMPHOCYTES % (AUTO) 3.9 % (20.5-51.5); MEAN CORPUSCULAR HEMOGLOBIN 31.5 uug (24.7-32.8); MEAN CORPUSCULAR HGB CONC 33 g/dL (32.3-35.6); MEAN CORPUSCULAR VOLUME 94.4 fL (75.5-95.3); MONOCYTES # (AUTO) 0.9 K/uL (2.0-10.0); MONOCYTES % (AUTO) 3.8 % (0.0-11.0); NEUTROPHILS # (AUTO) 20.7 K/uL (1.8-8.9); NEUTROPHILS % (AUTO) 91.4 % (38.5-71.5); PLATELET COUNT (AUTO) 87 K/uL (179-408); RED BLOOD CELL COUNT(AUTO) 4.84 MIL/uL (3.63-4.92); WHITE BLOOD COUNT (AUTO) 22.6 K/uL (3.8-11.8)
[2020-03-06 06:08] LABS: CREATININE 0.9 mg/dL (0.6-1.3); MAGNESIUM 2.4 mg/dL (1.8-2.4); PHOSPHOROUS 3.2 mg/dL (2.5-4.9); POTASSIUM 6.1 mmol/L (3.5-5.1)
[2020-03-06] MEDS ORDERED: SODIUM POLYSTYRENE SULFONATE 15 G/60 ML LIQUID UDC PO ONE (07:00)
[2020-03-06] MEDS ORDERED: SODIUM BICARBONATE 8.4% 50 MEQ/50 ML DISP.SYRIN IV ONE (07:00)
[2020-03-06] MEDS ORDERED: MIDAZOLAM HCL 50 MG in IV NORMAL SALINE 40 ML IV PRN (07:00)
[2020-03-06 07:27] LABS: BILIRUBIN,DIRECT 0.5 mg/dL (0.0-0.2); BILIRUBIN,TOTAL 1.3 mg/dL (0.2-1.0); TOTAL PROTEIN, SERUM 5.2 g/dL (6.4-8.2)
[2020-03-06] MEDS ORDERED: CALCIUM GLUCONATE IV 1 GM in IV NORMAL SALINE 100 ML IV ONE (07:30)
[2020-03-06 07:48] LABS: ABG BASE EXCESS -1.9 mmol/L; ABG HCO3 20.2 mmol/L; ABG PCO2 28.3 mmHg (35.0-45.0); ABG PH 7.472 (7.350-7.450); ABG PO2 143.7 mmHg (75.0-100.0); ABG SITE LEFT RADIAL; ABG TOTAL HEMOGLOBIN 15.3 G/dL (12.0-16.0); COHb 1.6 % (0.5-1.5); MetHb 0.3 % (0.0-1.5); O2Hb 97.4 % (94.0-97.0); VENT MODE VENT - PCONTROL
[2020-03-06] MEDS: MIDAZOLAM HCL 50 MG in IV NORMAL SALINE 40 ML IV PRN ×3 (07:54→22:55)
[2020-03-06] MEDS: DEXAMETHASONE SOD PHOSPHATE 4 MG INJ IV SCH (08:14)
[2020-03-06] MEDS: ENOXAPARIN SODIUM 40 MG/0.4 ML DISP.SYRIN SQ SCH (08:14)
[2020-03-06] MEDS: NEOMY/BACITRAC/POLYMI OINT 28.35 GM TUBE TOP SCH (08:17)
[2020-03-06 09:03] LABS: BILIRUBIN,TOTAL 1.3 mg/dL (0.2-1.0); CREATININE 0.8 mg/dL (0.6-1.3); POTASSIUM 5.5 mmol/L (3.5-5.1); TOTAL PROTEIN, SERUM 4.9 g/dL (6.4-8.2)
--- NOTE | 2020-03-06 10:00 | NUR ---
Pulmonary services, Dr. Carter Marquez. in the unit to see and examine patient full report given see order hx.
[2020-03-06 19:55] LABS: BAND % (MANUAL) 4 % (0-10); LYMPHOCYTES % (MANUAL) 3 % (20-40); MONOCYTES % (MANUAL) 1 % (2-10); NEUTROPHILS % (MANUAL) 92 % (42-75)
--- NOTE | 2020-03-06 20:00 | NUR ---
RECEIVED PT ORALLY INTUBATED TO VENT W/ SETTINGS OF AC-16, TV-500, FIO2-60%, PEEP-+13 W/ O2 SAT OF 96%. ON VERSED DRIP @ 6MG/HR ON FREDO MIDLINE. NGT ON L NARE INTACT & CLAMPED. AFEBRILE. BP STABLE. REPOSITIONED ON HER SIDE W/ HOB ELEVATED.
[2020-03-06] MEDS: INSULIN GLARGINE,HUM 300 UNITS/3 ML CARTRIDGE SQ SCH (20:32)
[2020-03-07] VITALS (23 sets, daily range): BP systolic 101–122; BP diastolic 55–69
[2020-03-07] MEDS: BLOOD SUGAR DIAGNOSTIC 1 EACH STRIP VI SCH ×5 (00:22→23:21)
[2020-03-07] MEDS: INSULIN REGULAR, HUMAN 300 UNIT/3 ML VIAL SQ PRN ×5 (00:36→23:26)
[2020-03-07] MEDS: ALBUTEROL SULFATE 8 GM HFA.AER.AD IH SCH ×4 (01:58→19:36)
[2020-03-07] MEDS: IPRATROPIUM BROMIDE 12.9 GM INHALER INH SCH ×4 (01:58→19:36)
--- NOTE | 2020-03-07 04:00 | NUR ---
AM CARE DONE. ORAL CARE DONE. REPOSITIONED W/ HOB ELEVATED.
[2020-03-07 05:37] LABS: BASOPHILS % (AUTO) 0.1 % (0.0-2.0); EOSINOPHILS # (AUTO) 0.3 K/uL (0.0-0.7); EOSINOPHILS % (AUTO) 1.6 % (0.0-7.0); HEMOGLOBIN 15.8 g/dL (10.9-14.3); LYMPHOCYTES # (AUTO) 0.9 K/uL (20.0-40.0); LYMPHOCYTES % (AUTO) 5.4 % (20.5-51.5); MEAN CORPUSCULAR HEMOGLOBIN 32.1 uug (24.7-32.8); MEAN CORPUSCULAR HGB CONC 34 g/dL (32.3-35.6); MEAN CORPUSCULAR VOLUME 93.6 fL (75.5-95.3); MONOCYTES # (AUTO) 0.5 K/uL (2.0-10.0); MONOCYTES % (AUTO) 3.2 % (0.0-11.0); NEUTROPHILS # (AUTO) 14.3 K/uL (1.8-8.9); NEUTROPHILS % (AUTO) 89.7 % (38.5-71.5); RED BLOOD CELL COUNT(AUTO) 4.91 MIL/uL (3.63-4.92)
[2020-03-07 05:51] LABS: CREATININE 0.7 mg/dL (0.6-1.3); MAGNESIUM 2.2 mg/dL (1.8-2.4); PHOSPHOROUS 4.3 mg/dL (2.5-4.9); POTASSIUM 4.4 mmol/L (3.5-5.1)
[2020-03-07 06:00] LABS: PLATELET COUNT (AUTO) 63 K/uL (179-408)
--- NOTE | 2020-03-07 07:15 | NUR ---
Received report from assistant shift supervisor nurse, patient in bed sedated on versed. Sinus rhyhtm on the monitor, vitals stable, no distress noted at this time. Blood noted in suction canister. Intubated, murray draining purulent and sedimented urine that is paola in color. Air mattress inflated, alarms checked on monitoring. No distresss noted. will continue to monitor.
[2020-03-07 08:10] LABS: ABG BASE EXCESS 0.1 mmol/L; ABG HCO3 23.7 mmol/L; ABG PH 7.437 (7.350-7.450); ABG PO2 86.1 mmHg (75.0-100.0); ABG SITE LEFT RADIAL; ABG TOTAL HEMOGLOBIN 16.8 G/dL (12.0-16.0); COHb 1.6 % (0.5-1.5); MetHb 0.1 % (0.0-1.5); VENT MODE VENT - PCONTROL 25IP
[2020-03-07] MEDS: DEXAMETHASONE SOD PHOSPHATE 4 MG INJ IV SCH (08:32)
[2020-03-07] MEDS: ENOXAPARIN SODIUM 40 MG/0.4 ML DISP.SYRIN SQ SCH ×2 (08:32→09:00)
[2020-03-07] MEDS: NEOMY/BACITRAC/POLYMI OINT 28.35 GM TUBE TOP SCH (08:34)
--- NOTE | 2020-03-07 09:00 | NUR ---
Held lovenox due to bright red blood from trach suctioning.
--- NOTE | 2020-03-07 12:45 | NUR ---
Patent seen by Elin Esteban, start tube feeding as monument stonecutter recommends and hold lovenox orders received.
--- NOTE | 2020-03-07 14:06 | NUR ---
Replaced murray catheter due to significant sediment and debris in catheter.
[2020-03-07] MEDS ORDERED: VITAL AF 1.2 1,000 ML LIQUID GT PRN ×2 (14:15)
[2020-03-07] MEDS: CEFEPIME HCL 1 G in IV DEXTROSE 5% 50 ML IV SCH ×2 (14:54→22:53)
[2020-03-07] MEDS: ACETAMINOPHEN 325 MG TABLET PO PRN (15:49)
[2020-03-07] MEDS: MIDAZOLAM HCL 50 MG in IV NORMAL SALINE 40 ML IV PRN (15:51)
--- NOTE | 2020-03-07 16:02 | NUR ---
patient has a fever of 100.4. cooling measures and tylenol given. ordered blood cultures, lactic aid, procalcitonin, per kannan vu
--- NOTE | 2020-03-07 18:52 | NUR ---
Lactic acid results reported to kannan vu orders received for 500cc Bolus Normal Saline wide open
[2020-03-07] MEDS ORDERED: IV NORMAL SALINE 500 ML IV ONE (19:00)
--- NOTE | 2020-03-07 19:00 | NUR ---
Patient continues to be intubated with ETT 7.0 a/c TV 500 60% fio2, Peep 13, patient is on versed 3mg/hr, sinustachy on the monitor, oxygen saturation 96%, patient had fever of 100.4 and elevated lactic acid with a bolus given at 500cc/hr. scd's on air mattress inflated, and murray catheter replaced due to increased sediment and debris in urine.
--- NOTE | 2020-03-07 20:00 | NUR ---
Report received. Patient on isolation for COVID-19 orally intubated and to mechanical ventilator. Sedated with Versed 3 mg/H via midline FREDO. Assessment done; see ICU flow sheet for complete data.
[2020-03-07] MEDS: INSULIN GLARGINE,HUM 300 UNITS/3 ML CARTRIDGE SQ SCH (20:57)
--- NOTE | 2020-03-07 21:00 | NUR ---
Elin Esteban informed of lactic acid results; no order.
[2020-03-08] VITALS (35 sets, daily range): BP systolic 65–150; BP diastolic 22–92
[2020-03-08] MEDS: IPRATROPIUM BROMIDE 12.9 GM INHALER INH SCH ×4 (00:30→19:05)
[2020-03-08] MEDS: ALBUTEROL SULFATE 8 GM HFA.AER.AD IH SCH ×4 (00:30→19:05)
--- NOTE | 2020-03-08 05:00 | NUR ---
Patient's daughter called; updated of patient's condition.
[2020-03-08 05:21] LABS: BASOPHILS % (AUTO) 0.2 % (0.0-2.0); EOSINOPHILS # (AUTO) 0.1 K/uL (0.0-0.7); EOSINOPHILS % (AUTO) 0.5 % (0.0-7.0); HEMATOCRIT 47.3 % (31.2-41.9); HEMOGLOBIN 15.9 g/dL (10.9-14.3); LYMPHOCYTES # (AUTO) 0.5 K/uL (20.0-40.0); LYMPHOCYTES % (AUTO) 3.2 % (20.5-51.5); MEAN CORPUSCULAR HEMOGLOBIN 31.9 uug (24.7-32.8); MEAN CORPUSCULAR HGB CONC 34 g/dL (32.3-35.6); MEAN CORPUSCULAR VOLUME 94.6 fL (75.5-95.3); MONOCYTES # (AUTO) 0.6 K/uL (2.0-10.0); MONOCYTES % (AUTO) 4.1 % (0.0-11.0); NEUTROPHILS # (AUTO) 13.8 K/uL (1.8-8.9)
[2020-03-08] MEDS: BLOOD SUGAR DIAGNOSTIC 1 EACH STRIP VI SCH ×4 (05:41→23:29)
[2020-03-08] MEDS: INSULIN REGULAR, HUMAN 300 UNIT/3 ML VIAL SQ PRN ×4 (05:42→23:31)
[2020-03-08 05:58] LABS: PLATELET COUNT (AUTO) 69 K/uL (179-408)
[2020-03-08] MEDS: CEFEPIME HCL 1 G in IV DEXTROSE 5% 50 ML IV SCH (06:16)
--- NOTE | 2020-03-08 07:00 | NUR ---
Adequately sedated with Versed drip at 3 mg/H. VS stable.
--- NOTE | 2020-03-08 07:44 | NUR ---
PT RECEIVED ORALLY INTUBATED WITH A SIZE 7.0 ETT SECURED WITH ANCHOR-FAST APPROX. 24CM AT THE LIP. PT IS ON A RAE VENT ON PRESSURE CONTROL SETTINGS OF IP 25, RATE 16, 60% FIO2, AND PEEP +13. MDI TX GIVEN IN-LINE, NO ADVERSE REACTION NOTED. PT IS TOLERATING VENT SETTINGS WELL, ADEQUATE VOLUMES OBSERVED. NO RESP. DISTRESS NOTED. BVM AT BEDSIDE. VENT PLUGGED INTO RED OUTLET. SUCTION PRN. WILL CONTINUE TO MONITOR.
[2020-03-08 08:25] LABS: CREATININE 0.7 mg/dL (0.6-1.3); POTASSIUM 4.3 mmol/L (3.5-5.1)
[2020-03-08 08:36] LABS: ABG BASE EXCESS 0.7 mmol/L; ABG PCO2 39.2 mmHg (35.0-45.0); ABG PH 7.422 (7.350-7.450); ABG SITE RIGHT FEMORAL; ABG TOTAL HEMOGLOBIN 18.7 G/dL (12.0-16.0); MetHb 0.3 % (0.0-1.5); O2Hb 89.8 % (94.0-97.0); VENT MODE VENT - PCONTROL
[2020-03-08] MEDS: DEXAMETHASONE SOD PHOSPHATE 4 MG INJ IV SCH (08:38)
[2020-03-08] MEDS: NEOMY/BACITRAC/POLYMI OINT 28.35 GM TUBE TOP SCH (08:39)
[2020-03-08] MEDS: MIDAZOLAM HCL 50 MG in IV NORMAL SALINE 40 ML IV PRN ×2 (10:14→22:16)
[2020-03-08] MEDS ORDERED: MEROPENEM 1 G in IV NORMAL SALINE 100 ML IV SCH (14:00)
--- NOTE | 2020-03-08 14:59 | NUR ---
Dr. Machado here to see pt. Full report given. New orders received.
--- NOTE | 2020-03-08 16:35 | NUR ---
Spoke with Doctor MD Yaz about patient heart rate, 150. It is currently recommended to keep patient on versed drip at max and no new intervention. Gabe Lang RN
--- NOTE | 2020-03-08 18:10 | NUR ---
Spoke with RADAR MECHANIC Elin Esteban regarding pt's sustained HR 160's. Bullet Assembly Press Setter Operator already made aware earlier, but no intervention needed per MD. New orders received from RADAR MECHANIC.
[2020-03-08] MEDS ORDERED: MORPHINE SULFATE 2 MG/1 ML DISP.SYRIN IV ONE (18:15)
[2020-03-08] MEDS ORDERED: LORAZEPAM 2 MG/1 ML VIAL IV PRN (18:15)
--- NOTE | 2020-03-08 19:30 | NUR ---
Report received. Patient on isolation for COVID-19. Orally intubated and to mechanical ventilator. Respirations labored, saturations 91-92%. Whvk=[id number]. Cooling measures initiated. Tylenol given with iced water. On continuous Versed drip at 7 mg/H via infusion pump to FREDO midline. Assessment done; see flow sheet for completed data.
[2020-03-08] MEDS: ACETAMINOPHEN 325 MG TABLET PO PRN (19:35)
--- NOTE | 2020-03-08 20:25 | NUR ---
Spoke to Dr. Sullivan re: patient's condition. Orders received. NS 1L IV bolus started.
[2020-03-08] MEDS ORDERED: IV NS 1000 ML 1,000 ML IV PRN (20:30)
[2020-03-08] MEDS ORDERED: IV NS 1000 ML 1,000 ML IV ONE (20:30)
[2020-03-08] MEDS ORDERED: NOREPINEPHRINE BITARTRATE 8 MG in IV NORMAL SALINE 242 ML IV PRN (20:30)
[2020-03-08] MEDS: INSULIN GLARGINE,HUM 300 UNITS/3 ML CARTRIDGE SQ SCH (21:00)
[2020-03-08] MEDS: MEROPENEM 1 G in IV NORMAL SALINE 100 ML IV SCH (21:55)
--- NOTE | 2020-03-08 23:00 | NUR ---
Spoke to Dr. Sullivan again; informed of patient's HR and BP. Neosynephrine drip ordered.
[2020-03-08] MEDS ORDERED: PHENYLEPHRINE 10 MG/1 ML VIAL ONE (23:42)
[2020-03-09] VITALS (63 sets, daily range): BP systolic 60–144; BP diastolic 23–97
[2020-03-09] MEDS: PHENYLEPHRINE IV 50 MG in IV NORMAL SALINE 245 ML IV PRN ×2 (00:02→12:07)
--- NOTE | 2020-03-09 00:02 | NUR ---
Neosynephrine drip started to keep SBP above 90; BPs monitored closely.
[2020-03-09] MEDS: ALBUTEROL SULFATE 8 GM HFA.AER.AD IH SCH ×4 (00:30→20:10)
[2020-03-09] MEDS: IPRATROPIUM BROMIDE 12.9 GM INHALER INH SCH ×4 (00:31→20:10)
[2020-03-09 05:29] LABS: BASOPHILS % (AUTO) 0.1 % (0.0-2.0); HEMATOCRIT 54.6 % (31.2-41.9); HEMOGLOBIN 17.9 g/dL (10.9-14.3); LYMPHOCYTES # (AUTO) 0.5 K/uL (20.0-40.0); LYMPHOCYTES % (AUTO) 1.9 % (20.5-51.5); MEAN CORPUSCULAR HEMOGLOBIN 32.4 uug (24.7-32.8); MEAN CORPUSCULAR HGB CONC 33 g/dL (32.3-35.6); MEAN CORPUSCULAR VOLUME 98.6 fL (75.5-95.3); MONOCYTES # (AUTO) 1.3 K/uL (2.0-10.0); MONOCYTES % (AUTO) 4.7 % (0.0-11.0); NEUTROPHILS # (AUTO) 26.9 K/uL (1.8-8.9); NEUTROPHILS % (AUTO) 93.3 % (38.5-71.5); PLATELET COUNT (AUTO) 98 K/uL (179-408); RED BLOOD CELL COUNT(AUTO) 5.54 MIL/uL (3.63-4.92); WHITE BLOOD COUNT (AUTO) 28.8 K/uL (3.8-11.8)
[2020-03-09] MEDS: BLOOD SUGAR DIAGNOSTIC 1 EACH STRIP VI SCH ×4 (05:51→23:40)
[2020-03-09] MEDS: INSULIN REGULAR, HUMAN 300 UNIT/3 ML VIAL SQ PRN ×3 (05:54→18:16)
--- NOTE | 2020-03-09 06:00 | NUR ---
Dr. Snider radiologist called re: CXR result this am with L 50% Pneumothorax. Patient's daughter informed; phone consent for chest tube insertion obtained. Test And Balance Engineer notified. Spoke to YADI Chavez. Call placed to Dr. Hurtado's exchange. RT informed of CXR results. ABGs drawn.
[2020-03-09 06:15] LABS: CREATININE 1.5 mg/dL (0.6-1.3); PHOSPHOROUS 7.5 mg/dL (2.5-4.9); POTASSIUM 5.5 mmol/L (3.5-5.1); TOTAL PROTEIN, SERUM 5.6 g/dL (6.4-8.2)
[2020-03-09 06:19] LABS: ABG BASE EXCESS -5.4 mmol/L; ABG HCO3 20.6 mmol/L; ABG PCO2 42.1 mmHg (35.0-45.0); ABG PH 7.308 (7.350-7.450); ABG PO2 94.5 mmHg (75.0-100.0); ABG SITE LEFT RADIAL; ABG TOTAL HEMOGLOBIN 19.2 G/dL (12.0-16.0); COHb 0.3 % (0.5-1.5); MetHb 0.7 % (0.0-1.5); VENT MODE VENT - PCONTROL
--- NOTE | 2020-03-09 06:20 | NUR ---
Spoke to Dr. Nails re: CXR and ABGs. Order received to have ER MD insert chest tube. No vent changes.
--- NOTE | 2020-03-09 06:30 | NUR ---
Seen by Dr. Gilbert; aware of patient's condition. Still awaiting call back from Dr. Hurtado.
--- NOTE | 2020-03-09 07:00 | NUR ---
Remains on PC vent with 100% FIO2, Neosynephrine drip at 0.6 mcg/kg/min. and Versed drip at 7 mg/H. Spoke to Patient's daughter Mone re: patient's condition.
[2020-03-09] MEDS: MEROPENEM 1 G in IV NORMAL SALINE 100 ML IV SCH ×2 (07:16→18:09)
[2020-03-09] MEDS: NEOMY/BACITRAC/POLYMI OINT 28.35 GM TUBE TOP SCH (07:57)
[2020-03-09] MEDS: DEXAMETHASONE SOD PHOSPHATE 4 MG INJ IV SCH (07:57)
[2020-03-09] MEDS: MIDAZOLAM HCL 50 MG in IV NORMAL SALINE 40 ML IV PRN ×2 (08:07→15:17)
--- NOTE | 2020-03-09 08:35 | NUR ---
Brought pt down with radiologist and RT for CT chest. Pt stable and nad noted upon leaving the unit.
--- NOTE | 2020-03-09 09:25 | NUR ---
Pt returned from CT chest. Pt stable and nad noted upon returning to the unit.
--- NOTE | 2020-03-09 10:45 | NUR ---
Dr. David inserted left chest tube. Pt saturating wnl and nad noted upon completion of the procedure.
--- NOTE | 2020-03-09 11:10 | NUR ---
Dr. Machado here to see pt. Full report given. New orders received.
[2020-03-09] MEDS ORDERED: HEPARIN/D5W DRIP 500 ML IV PRN (11:30)
--- NOTE | 2020-03-09 12:19 | NUR ---
Spoke with Dr. Machado on the telephone. spoke with Dr. Gilbert on the telephone regarding heparin drip and pt's condition. New orders received and carried out.
--- NOTE | 2020-03-09 12:27 | NUR ---
Telephone consent for PICC line insertion signed by Alessia (daughter). Daughter alert and oriented during our telephone conversation and is aware of the procedure to be done.
--- NOTE | 2020-03-09 13:00 | NUR ---
PICC line RN here to see pt for PICC line insertion.
[2020-03-09] MEDS ORDERED: IV NS 1000 ML 1,000 ML IV ONE (13:15)
[2020-03-09] MEDS ORDERED: HEPARIN SODIUM,PORCINE 5,000 UNITS/ML VIAL IV ONE (14:45)
[2020-03-09] MEDS ORDERED: SODIUM POLYSTYRENE SULFONATE 15 G/60 ML LIQUID UDC PO ONE (15:45)
[2020-03-09] MEDS: VANCOMYCIN IV 1,000 MG in IV DEXTROSE 5% 250 ML IV SCH (17:33)
[2020-03-09 17:59] LABS: *BILIRUBIN,URIN NEGATIVE (NEGATIVE); *BLOOD, URINE 3+ (NEGATIVE); *CLARITY,URINE CLEAR (CLEAR); *COLOR,URINE DARK YELLOW (YELLOW); *KETONES,URINE NEGATIVE (NEGATIVE); LEUKOCYTE ESTERASE ,URINE NEGATIVE (NEGATIVE); NITRITE, URINE NEGATIVE (NEGATIVE); UGLUCOSE NEGATIVE (NEGATIVE)
--- NOTE | 2020-03-09 20:00 | NUR ---
RECEIVED PT. ORALLY INTUBATED TO VENT W/ SETTINGS OF AC-16, PRESSURE CONTROL-25, FIO2-100%, PEEP-+13 W/ O2 SAT OF 100%. ON VERSED DRIP @ 6MG/HR VIA PICC LINE ON FREDO. ON NEOSYNEPHRINE DRIP @ 5MCQ/ KG/MIN. IVF NS @ 80CC/HR. REPOSITIONED W/ HOB ELEVATED.
--- NOTE | 2020-03-09 20:00 | NUR ---
CHEST TUBE ON LEFT LATERAL CHEST INTACT TO ATRIUM WATER SEAL DRAINAGE BAG W/ 20CM WATER PRESSURE W/ SEROSANGINOUS DRAINAGE.
[2020-03-09] MEDS: INSULIN GLARGINE,HUM 300 UNITS/3 ML CARTRIDGE SQ SCH (20:38)
[2020-03-09 21:49] LABS: BACTERIA,URINE FEW /HPF (NONE SEEN); SQUAMOUS EPITHELIAL CELL,UR FEW /HPF (NONE SEEN); WBC,URINE 0-3 /HPF (0-3)
[2020-03-10] VITALS (77 sets, daily range): BP systolic 0–231; BP diastolic 0–109
[2020-03-10] MEDS: INSULIN REGULAR, HUMAN 300 UNIT/3 ML VIAL SQ PRN ×2 (00:01→07:25)
[2020-03-10] MEDS: MIDAZOLAM HCL 50 MG in IV NORMAL SALINE 40 ML IV PRN ×3 (01:03→23:14)
[2020-03-10] MEDS: ALBUTEROL SULFATE 8 GM HFA.AER.AD IH SCH ×4 (01:13→19:30)
[2020-03-10] MEDS: IPRATROPIUM BROMIDE 12.9 GM INHALER INH SCH ×4 (01:13→19:30)
--- NOTE | 2020-03-10 02:00 | NUR ---
AM CARE DONE. REINFORCED DRSG ON LEFT LATERAL CHEST TUBE MODERATE BLEEDING NOTED. TURNED OFF HEPARIN DRIP.
[2020-03-10] MEDS: ACETAMINOPHEN 325 MG TABLET PO PRN (04:19)
--- NOTE | 2020-03-10 04:50 | NUR ---
PT. BP IS HIGH ,RECHECKED IN DIFF SITES STILL HIGH.CALLED DR MARTÍNEZ UPDATED PT. STATUS.
[2020-03-10] MEDS: PHENYLEPHRINE IV 50 MG in IV NORMAL SALINE 245 ML IV PRN ×2 (05:29→11:00)
--- NOTE | 2020-03-10 05:29 | NUR ---
neosynephrine hung was an error.
[2020-03-10] MEDS: MEROPENEM 1 G in IV NORMAL SALINE 100 ML IV SCH ×2 (06:07→21:31)
[2020-03-10] MEDS ORDERED: PROPOFOL 50 ML IV ONE (06:30)
[2020-03-10 06:38] LABS: ABG BASE EXCESS -4.7 mmol/L; ABG PCO2 59.2 mmHg (35.0-45.0); ABG PH 7.225 (7.350-7.450); ABG PO2 83.7 mmHg (75.0-100.0); ABG SITE RIGHT RADIAL; ABG TOTAL HEMOGLOBIN 15.2 G/dL (12.0-16.0); COHb 1.1 % (0.5-1.5); MetHb 0.3 % (0.0-1.5); O2Hb 93.5 % (94.0-97.0); VENT MODE VENT - PCONTROL
--- NOTE | 2020-03-10 06:53 | NUR ---
DR MARTÍNEZ CALLED TO START NITROGLYRIN DRIP TO CONTROL BP.
[2020-03-10] MEDS ORDERED: NITROGLYCERIN IV 250 ML IV PRN (07:00)
[2020-03-10] MEDS: BLOOD SUGAR DIAGNOSTIC 1 EACH STRIP VI SCH ×3 (07:21→18:18)
--- NOTE | 2020-03-10 07:43 | NUR ---
COntacted Elin Esteban about patient condition and no BP reading to talk to family about DNR status.
[2020-03-10] MEDS: NEOMY/BACITRAC/POLYMI OINT 28.35 GM TUBE TOP SCH (08:18)
[2020-03-10] MEDS: DEXAMETHASONE SOD PHOSPHATE 4 MG INJ IV SCH (08:18)
--- NOTE | 2020-03-10 09:10 | NUR ---
Notified Elin vu that levophed will be started as neosynephrine is maxed out.
[2020-03-10 09:40] LABS: BASOPHILS % (AUTO) 0.1 % (0.0-2.0); EOSINOPHILS % (AUTO) 0.1 % (0.0-7.0); HEMATOCRIT 43.2 % (31.2-41.9); HEMOGLOBIN 13.8 g/dL (10.9-14.3); LYMPHOCYTES # (AUTO) 0.4 K/uL (20.0-40.0); LYMPHOCYTES % (AUTO) 1.7 % (20.5-51.5); MEAN CORPUSCULAR HEMOGLOBIN 32.2 uug (24.7-32.8); MEAN CORPUSCULAR HGB CONC 32 g/dL (32.3-35.6); MEAN CORPUSCULAR VOLUME 101.1 fL (75.5-95.3); MONOCYTES # (AUTO) 0.8 K/uL (2.0-10.0); MONOCYTES % (AUTO) 3.6 % (0.0-11.0); NEUTROPHILS # (AUTO) 22.1 K/uL (1.8-8.9); NEUTROPHILS % (AUTO) 94.5 % (38.5-71.5); PLATELET COUNT (AUTO) 56 K/uL (179-408); RED BLOOD CELL COUNT(AUTO) 4.28 MIL/uL (3.63-4.92); WHITE BLOOD COUNT (AUTO) 23.4 K/uL (3.8-11.8)
[2020-03-10 09:45] LABS: BILIRUBIN,DIRECT 2.6 mg/dL (0.0-0.2); BILIRUBIN,TOTAL 4.2 mg/dL (0.2-1.0); CREATININE 1.4 mg/dL (0.6-1.3); MAGNESIUM 3.1 mg/dL (1.8-2.4); PHOSPHOROUS 6.9 mg/dL (2.5-4.9); TOTAL PROTEIN, SERUM 3.9 g/dL (6.4-8.2)
[2020-03-10] MEDS ORDERED: VASOPRESSIN 20 UNIT in IV NORMAL SALINE 40 ML IV PRN (10:00)
[2020-03-10 10:16] LABS: POTASSIUM 6.3 mmol/L (3.5-5.1)
--- NOTE | 2020-03-10 10:18 | NUR ---
Notified Elin Esteban critical labs of potassium and sodium and low albumin.
[2020-03-10] MEDS ORDERED: IV D5W 1000ML 1,000 ML IV PRN (11:00)
[2020-03-10] MEDS ORDERED: NOREPINEPHRINE BITARTRATE 32 MG in IV NORMAL SALINE 218 ML IV PRN (12:15)
[2020-03-10] MEDS: PHENYLEPHRINE IV 100 MG in IV NORMAL SALINE 240 ML IV PRN ×2 (15:20→22:17)
[2020-03-10] MEDS ORDERED: EPINEPHRINE 1:10,000 1 MG/10 ML DISP.SYRIN ONE ×2 (17:13→17:47)
--- NOTE | 2020-03-10 17:13 | NUR ---
leo at bedside to insert arterial line, patient went into [facility], request for epinephrine drip and push at this time.
[2020-03-10 17:14] LABS: LYMPHOCYTES % (MANUAL) 3 % (20-40); MONOCYTES % (MANUAL) 3 % (2-10); NEUTROPHILS % (MANUAL) 94 % (42-75)
[2020-03-10] MEDS: NOREPINEPHRINE BITARTRATE 32 MG in IV NORMAL SALINE 218 ML IV PRN ×2 (17:20→22:15)
[2020-03-10] MEDS: EPINEPHRINE AMP 1 MG in IV DEXTROSE 5% 250 ML IV PRN ×2 (17:37→23:30)
--- NOTE | 2020-03-10 17:37 | NUR ---
order received for epinephrine [address] Jiang.
--- NOTE | 2020-03-10 17:48 | NUR ---
order received for epinephrine [address] Jiang.
[2020-03-10] MEDS ORDERED: CALCIUM CHLORIDE 1 GM/10 ML DISP.SYRIN IVP ONE (18:15)
--- NOTE | 2020-03-10 18:21 | NUR ---
order received for calcium chloride by Dr. Jiang.
--- NOTE | 2020-03-10 19:59 | NUR ---
Patient continues on ac mode on ventilator, BP low despite multiple vasopressors, Dr. Jiang at the bedside for several hours with attempts of Arterial lines being unsuccessful. Patients status discussed with family by Dr. Jiang. Patient continues to be full code. Guerra has scant urine, chest tube continues to be on suction. Patient is in v-tach with Fractionation Plant Supervisor aware of condition, medications and no new orders despite v-tach at this time. 2 doses of epinephrine push given and one calcium chloride while MD in unit. Report given to sanitation director nurse.
[2020-03-10] MEDS: VANCOMYCIN IV 1,000 MG in IV DEXTROSE 5% 250 ML IV SCH (20:00)
--- NOTE | 2020-03-10 20:00 | NUR ---
RECEIVED PT. OBTUNDED ORALLY INTUBATED TO VENT W/ SETTINGS OF AC-16, PCV-25, FIO2-100%, PEEP-+13 W/ O2 SAT 98%. ON VERSED DRIP @ 4MG/HR DECREASED TO 2MG/HR. VIA PICC LINE ON FREDO.IVF D5W @ 80CC/HR. EPINEPHRINE DRIP @ 37CC/HR. LEVOPHED DRIP @ 1.5mcq/kg/min. NEOSYNEPHRINE DRIP @ 3MCQ/KG/MIN. PITRESSIN DRIP @ 0,04 UNITS/MIN. WATCHED PT. CLOSELY.
[2020-03-10] MEDS: INSULIN GLARGINE,HUM 300 UNITS/3 ML CARTRIDGE SQ SCH (21:00)
--- NOTE | 2020-03-10 23:35 | NUR ---
PT, CARDIAC RHYTM -IDEOVENTRICULAR HR-80/MIN, NO BP, CODE BLUE CALLED.
--- NOTE | 2020-03-10 23:51 | NUR ---
PRONOUNCED BY DR LITTLE CREWS MD.
--- NOTE | 2020-03-10 23:55 | NUR ---
FAMILY CALLED [facility]NA DAUGHTER NOTIFIED. DR Patrick GARCIA CALLED & NOTIFIED. [facility] CALLED W/ CASE NO.[id number].
--- NOTE | 2020-03-11 02:00 | NUR ---
post mortem care done.
[2020-03-11] MEDS ORDERED: EPINEPHRINE 1:10,000 1 MG/10 ML DISP.SYRIN IV ONE (02:44)
[2020-03-11] MEDS ORDERED: CALCIUM CHLORIDE 1 GM/10 ML DISP.SYRIN IV ONE (02:44)
[2020-03-11] MEDS ORDERED: SODIUM BICARBONATE 8.4% 50 MEQ/50 ML DISP.SYRIN IV ONE (02:44)
--- NOTE | 2020-03-11 02:45 | NUR ---
pt. body to morge.
== END 2020-03-11 02:45 | disposition expired | DRG 870 ==
LOC: TELE3 23:41 → CCU 02-27 19:05
PROVIDERS: ADMIT Internal Medicine; ATTEND Nurse Practitioner Acute Care
PROC: XW033E5 Introduction of Remdesivir Anti-infective into Peripheral Vein, Percutaneous Approach, New Technology Group 5 (ICD-10-PCS; principal; 2020-02-25)
PROC: 5A09557 Assistance with Respiratory Ventilation, Greater than 96 Consecutive Hours, Continuous Positive Airway Pressure (ICD-10-PCS; 2020-02-26)
PROC: XW033H5 Introduction of Tocilizumab into Peripheral Vein, Percutaneous Approach, New Technology Group 5 (ICD-10-PCS; 2020-02-27)
PROC: XW13325 Transfusion of Convalescent Plasma (Nonautologous) into Peripheral Vein, Percutaneous Approach, New Technology Group 5 (ICD-10-PCS; 2020-02-28)
PROC: 05H533Z Insertion of Infusion Device into Right Subclavian Vein, Percutaneous Approach (ICD-10-PCS; 2020-03-03)
PROC: B546ZZA Ultrasonography of Right Subclavian Vein, Guidance (ICD-10-PCS; 2020-03-03)
PROC: 5A1955Z Respiratory Ventilation, Greater than 96 Consecutive Hours (ICD-10-PCS; 2020-03-03)
PROC: 0BH17EZ Insertion of Endotracheal Airway into Trachea, Via Natural or Artificial Opening (ICD-10-PCS; 2020-03-03)
PROC: 0W9B30Z Drainage of Left Pleural Cavity with Drainage Device, Percutaneous Approach (ICD-10-PCS; 2020-03-03)
PROC: 02HV33Z Insertion of Infusion Device into Superior Vena Cava, Percutaneous Approach (ICD-10-PCS; 2020-03-09)
PROC: B548ZZA Ultrasonography of Superior Vena Cava, Guidance (ICD-10-PCS; 2020-03-09)
PROC: 5A12012 Performance of Cardiac Output, Single, Manual (ICD-10-PCS; 2020-03-11)
DX: A41.89 Other specified sepsis (principal); U07.1 COVID-19; J12.89 Other viral pneumonia; J96.01 Acute respiratory failure with hypoxia; E43 Unspecified severe protein-calorie malnutrition; G93.41 Metabolic encephalopathy; N17.0 Acute kidney failure with tubular necrosis; R65.21 Severe sepsis with septic shock; K72.00 Acute and subacute hepatic failure without coma; J93.0 Spontaneous tension pneumothorax; D68.69 Other thrombophilia; E87.0 Hyperosmolality and hypernatremia; E87.2 Acidosis; N39.0 Urinary tract infection, site not specified; B37.49 Other urogenital candidiasis; Z16.12 Extended spectrum beta lactamase (ESBL) resistance; E11.65 Type 2 diabetes mellitus with hyperglycemia; D69.6 Thrombocytopenia, unspecified; D72.819 Decreased white blood cell count, unspecified; E87.5 Hyperkalemia; I10 Essential (primary) hypertension; E66.01 Morbid (severe) obesity due to excess calories; Z68.30 Body mass index [BMI] 30.0-30.9, adult; B96.20 Unspecified Escherichia coli [E. coli] as the cause of diseases classified elsewhere; Z87.01 Personal history of pneumonia (recurrent); Z86.19 Personal history of other infectious and parasitic diseases
CPT/HCPCS: 36415; 36600; 70030-TC; 71045; 71250; 83605; 83615; 83735; 84100; 84132; 84443; 84478; 85025; 85610; 85730; 86140; 86480; 86803; 86850; 86900; 86901; 87040; 87070; 87077; 87086; 87806; 92950; 94002; 94003; 94640; 94660; 94664; A4217; A4663; G0378; J0171; J0330; J0610; J0692; J0696; J1100; J1200; J1644; J1650; J1815; J1940; J2060; J2185; J2250; J2270; J2370; J3262; J3370; J3490; J3535; J3590; J7030; J7040; J7042; J7050; J7060; J7070; P9016-BL; P9017-BL